=== PATIENT | male | born 1990 | race African-American/Black ===

== ENCOUNTER 2022-10-18 19:16 | Emergency (ER) | payer OTHER, SELFPAY ==
[2022-10-18] MEDS ORDERED: Aspirin Chewable 81 MG TAB ONE (19:51)
[2022-10-18 20:00] LABS: Hematocrit 48.5 % (42.0-52.0); Hemoglobin 15.7 g/dL (14.0-18.0); Mean Corpuscular HGB CONC 32.4 g/dL (32.0-36.0); Mean Corpuscular Volume 92.5 fl (78.0-98.0); Mean Platelet Volume 8.2 fL (7.4-10.4); Platelet Count 218 10x3/uL (130-400); RBC Distribution Width 12.8 % (11.5-14.5); Red Blood Cell (RBC) Count 5.25 mill/uL (4.70-6.10)
[2022-10-18 20:01] LABS: MDiff Complete? YES; Manual Diff?? YES
[2022-10-18 20:02] LABS: Lymphocytes 36 % (21-51); Monocytes 7 % (0-10); Neutrophil 57 % (42-75)
[2022-10-18 20:03] LABS: Platelet Adequacy Comment Appears Adequate
[2022-10-18 20:14] LABS: Troponin I Less than 0.010 ng/mL (< 0.028)
[2022-10-18] MEDS ORDERED: cefTRIAXone (ROCEPHIN) 1 GM VIAL ONE (20:25)
[2022-10-18] MEDS ORDERED: Sodium Chloride 0.9% 100 ML ONE (20:25)
[2022-10-18] MEDS ORDERED: Sodium Chloride 0.9% 1,000 ML ONE (20:25)
[2022-10-18 20:27] LABS: Bilirubin Small (Negative); Blood, Urine Negative (Negative); Clarity Clear (Clear); Glucose, Urine (Dipstick) Negative (Negative); Ketone, Urine Trace mg/dL (Negative); Leukocyte Negative (Negative); Nitrite Negative (Negative); Protein, Urine (Dipstick) 100 mg/dL (Neg-Trace); Specific Gravity, Urine 1.026 (1.002-1.036); Urobilinogen 0.2 mg/dL (Less than 2)
[2022-10-18 20:28] LABS: Bacteria/HPF None Seen HPF (None Seen); CAUTI Indications for Culture Alt mental st,lethar; RBC/HPF None Seen HPF (0-3); Squamous Epithelial None Seen HPF (0-3); WBC/HPF None Seen HPF (0-3)
[2022-10-18 20:29] LABS: Urine Culture Reflex No No
[2022-10-18 20:40] LABS: ALT (SGPT) 16 U/L (8-55); AST (SGOT) 12 U/L (5-34); Albumin 4.4 g/dL (3.5-5.0); Alkaline Phosphatase 44 U/L (40-110); Anion Gap 14 mmol/L (10-20); BUN (Urea Nitrogen) 16 mg/dL (8.9-20.6); Bilirubin, Total 0.3 mg/dL (0.2-1.2); Calc. Creatinine Clearance 0 mL/min (70-130); Calcium 9.7 mg/dL (7.8-10.44); Carbon Dioxide 27 mmol/L (22-29); Chloride 108 mmol/L (98-107); Estimated GFR 75; Globulin 3.1 g/dL (2.4-3.5); Glucose 74 mg/dL (70-105); Potassium 4.1 mmol/L (3.5-5.1); Protein, Total 7.5 g/dL (6.0-8.3); Sodium 145 mmol/L (136-145)
[2022-10-18 23:00] LABS: Troponin I Less than 0.010 ng/mL (< 0.028)
== END 2022-10-18 23:17 | disposition home or self-care (01) ==
LOC: NAV ERS 19:16
DX: E86.0 Dehydration (principal); I49.49 Other premature depolarization; R42 Dizziness and giddiness; R11.0 Nausea; F17.210 Nicotine dependence, cigarettes, uncomplicated
CPT/HCPCS: 36415; 71045; 80053; 81001; 83605; 84484; 85025; 87040; 93005; 96360; 96361; 96372; J0696; J3490; J7050

== ENCOUNTER 2024-10-28 10:46 | Emergency (ER) | payer OTHER, SELFPAY ==
[2024-10-28] MEDS ORDERED: Naproxen 500 MG TAB ONE (11:06)
[2024-10-28] MEDS ORDERED: Lidocaine 1% (PF) 30 ML VIAL ONE (11:23)
== END 2024-10-28 12:40 | disposition home or self-care (01) ==
LOC: NAV ERS 10:46 → EEVIPCON 10:46 → NAV ERS 12:40
DX: S62.336A Displaced fracture of neck of fifth metacarpal bone, right hand, initial encounter for closed fracture (principal); F17.200 Nicotine dependence, unspecified, uncomplicated; W22.8XXA Striking against or struck by other objects, initial encounter; Y93.01 Activity, walking, marching and hiking
CPT/HCPCS: 26605